=== PATIENT | female | born 1965 | race Caucasian/White ===

== ENCOUNTER → 2017-04-24 | Outpatient (CLI) | payer OTHER ==
[~2017-04-24] MED LIST: ASPIRIN325 PO; ATORVASTATIN CA40 MG PO; COLACE100 MG PO; CYMBALTA60 MG PO; FISH OIL 1,001000 M2 PO; FLEXERIL PO; HYDROCODONE-AP1 EAC6 PO; LASIX 40 MG TAB40 M2 PO; LOSARTAN-HCTZ1 EAC2 PO; MOBIC15 MG PO; MOBIC7.5 MG PO; NEURONTIN 300300 M1 PO; NORCO 10-325 T1 EACH PO; OMEPRAZOLE40 MG PO; OXYCODONE HCL 55 MG PO; POTASSIUM20 PO; PROAIR HFA8.5 GM INH; SINGULAIR 10 MG10 M1 PO; XARELTO10 MG PO; ZANAFLEX4 MG PO
--- NOTE | 2017-04-25 08:24 | PAINCON ---
[address] [address] PAIN MANAGEMENT CONSULTATION Name: LING SERRATO Room: [facility] Dileep#: [id number] Admission: 04/24/17 Attend Phys: Thomas Trejo Discharge: Date of : 67 Report #: [id number] THIS REPORT FOR: //name// CC: James Kruger The patient is a 51-year-old female prior seen in the pain clinic on 03/20/2017, given a cervical epidural injection. Returns to the pain clinic today noting really no significant changes with that procedure. She still has paresthesia going into the left thumb, decreased hand grasp strength with ongoing pain in the neck. She notes again that the injection on 03/20/2017 did afford 50-60% relief, but only 1 day with no ongoing relief. She notes facet joint injections back in 08/2015 had been more helpful overall. PHYSICAL EXAMINATION: Shows a 51-year-old female, BMI is 45.5 kilograms per meter squared. Blood pressure is elevated at 159/90, pulse 81 and respirations 16. Subjective pain score is 7-8 on VAS. Again objective weakness in the left arm with slight decreased left triceps strength. Pain in the neck, left side, exacerbated with cervical rotation. We have reviewed diagnostic studies, I had ordered x-rays of the cervical spine, which were accomplished on 04/05/2017. They show post-surgical changes of an ACDF at C5 through C7. There appears to be a little lucency of the screws at C5 and C6. She has cervical spondylosis. ASSESSMENT: Symptomatic cervical spondylosis by clinical exam and history in a patient status post cervical decompressive laminectomy. RECOMMENDATION: We will seek authorization for bilateral C7-T1 facet joint injection under fluoroscopy at next visit. <ELECTRONICALLY SIGNED> By: David Kruger DO 04/25/17 [id number] Kruger DO /nt
== END ==
LOC: M.PC 04-17 08:40
DX: M47.892 Other spondylosis, cervical region (principal); Z98.890 Other specified postprocedural states